=== PATIENT | male | born 1935 | race Caucasian/White ===

== ENCOUNTER → 2017-01-19 | Outpatient (CLI) | payer OTHER ==
[~2017-01-19] MED LIST: ALDACTONE25 MG PO; AREDS2 PO; ASPIRIN325 PO; CIPRO500 MG PO; HYDROCHLOROTHIA25 M2 PO; LISINOPRIL20 MG PO; MELATONIN3 MG PO; NORVASC5 MG PO; OXYBUTYNIN 5 MG5 M2 PO; OXYBUTYNIN CHLO10 MG PO; POTASSIUM20 PO; ZOLOFT25 MG
== END ==
LOC: RAD 08:42
DX: S20.212A Contusion of left front wall of thorax, initial encounter (principal); X58.XXXA Exposure to other specified factors, initial encounter; Y93.89 Activity, other specified; Y92.89 Other specified places as the place of occurrence of the external cause; Y99.8 Other external cause status

== ENCOUNTER → 2017-04-01 | Outpatient (CLI) | payer OTHER | LOC: RAD 08:43 | DX: S52.022A Displaced fracture of olecranon process without intraarticular extension of left ulna, initial encounter for closed fracture (principal); X58.XXXA Exposure to other specified factors, initial encounter; Y93.89 Activity, other specified; Y92.89 Other specified places as the place of occurrence of the external cause; Y99.8 Other external cause status ==

== ENCOUNTER → 2018-05-23 | Outpatient (CLI) | payer OTHER | LOC: ULTRA 09:38 | DX: R41.0 Disorientation, unspecified (principal); I10 Essential (primary) hypertension; R26.89 Other abnormalities of gait and mobility; R42 Dizziness and giddiness ==

== ENCOUNTER → 2019-07-11 | Outpatient (CLI) | payer OTHER | LOC: SJCVCIMAG 09:31 | DX: I08.8 Other rheumatic multiple valve diseases (principal); I77.810 Thoracic aortic ectasia; I45.10 Unspecified right bundle-branch block; I11.9 Hypertensive heart disease without heart failure; R94.31 Abnormal electrocardiogram [ECG] [EKG]; E78.5 Hyperlipidemia, unspecified; G91.2 (Idiopathic) normal pressure hydrocephalus; Z87.891 Personal history of nicotine dependence; Z79.82 Long term (current) use of aspirin; Z79.899 Other long term (current) drug therapy ==

== ENCOUNTER → 2020-07-15 | Outpatient (CLI) | payer OTHER | LOC: SJCVC 10:53 | PROVIDERS: ATTEND Internal Medicine | DX: R94.31 Abnormal electrocardiogram [ECG] [EKG] (principal); I45.10 Unspecified right bundle-branch block; I11.9 Hypertensive heart disease without heart failure; I71.6 Thoracoabdominal aortic aneurysm, without rupture; E78.5 Hyperlipidemia, unspecified; G91.2 (Idiopathic) normal pressure hydrocephalus; Z79.82 Long term (current) use of aspirin; Z72.89 Other problems related to lifestyle; Z87.891 Personal history of nicotine dependence ==